=== PATIENT | female | born 1980 | race Caucasian/White ===

== ENCOUNTER 2018-06-11 12:57 | Emergency (ER) | payer MEDICAID ==
[~2018-06-11] VITALS: Ht 160 cm; Wt 60.0 kg
[2018-06-11] MEDS ORDERED: KETOROLAC 30MG/ML VIAL IV STA (13:39)
[2018-06-11] MEDS ORDERED: SODIUM CHLORIDE 0.9% 1,000 ML IV ONE (13:39)
[2018-06-11 14:42] LABS: CLARITY URINE CLEAR (CLEAR); COLOR URINE YELLOW (YELLOW); KETONES URINE NEGATIVE (NEGATIVE); LEUKOCYTE ESTERASE URINE NEGATIVE (NEGATIVE); NITRITE URINE NEGATIVE (NEGATIVE); OCCULT BLOOD URINE NEGATIVE (NEGATIVE); PH URINE 7.5 (4.5-8.0); PROTEIN URINE NEGATIVE (NEGATIVE); SPECIFIC GRAVITY URINE 1.017 (1.005-1.030); UROBILINOGEN URINE 0.2 E.U./dL (0.2-1.0)
[2018-06-11 15:07] LABS: BASOPHILS % 0.5 % (0.0-2.0); EOSINOPHILS % 2.2 % (0.0-5.0); HEMATOCRIT. 40.4 % (36.0-48.0); HEMOGLOBIN. 13.8 g/dL (12.0-16.0); LYMPHOCYTES % 22.7 % (20.0-50.0); MEAN CORPUSCULAR HEMOGLOBIN 31.9 pg (28.0-32.0); MEAN CORPUSCULAR VOLUME 93.1 fL (81.0-99.0); MEAN PLATELET VOLUME 9.5 fl (7.4-10.4); MONOCYTES % 7.3 % (2.0-8.0); NEUTROPHILS % 67.3 % (40.0-76.0); PLATELET 222 x1000/uL (130-400); RED BLOOD CELL COUNT 4.34 mill/uL (4.2-5.4); RED CELL DISTRIBUTION WIDTH 12.3 % (11.6-14.6)
[2018-06-11 15:10] LABS: CHLORIDE 107 mEq/L (98-107)
[2018-06-11 15:13] LABS: HCG SCREEN NEGATIVE; PARTIAL THROMBOPLASTIN TIME 27.7 sec (23.4-31.0); PROTHROMBIN TIME 10.3 sec (9.1-11.1)
[2018-06-11 15:15] VITALS: BP 115/58
== END 2018-06-11 16:59 | disposition home or self-care (01) ==
LOC: ER 12:57
DX: R10.2 Pelvic and perineal pain (principal); Z88.0 Allergy status to penicillin
CPT/HCPCS: 36415; 76830; 76856; 80053; 81003; 81025; 83690; 84703; 85025; 85610; 85730; 99284; J7030

== ENCOUNTER 2018-09-27 03:29 | Emergency (ER) | payer MEDICAID ==
[~2018-09-27] VITALS: Ht 160 cm; Wt 52.0 kg
[2018-09-27 06:15] VITALS: BP 114/59
== END 2018-09-27 06:15 | disposition home or self-care (01) ==
LOC: ER 03:29
DX: R20.2 Paresthesia of skin (principal); H53.8 Other visual disturbances; F41.9 Anxiety disorder, unspecified; R07.9 Chest pain, unspecified; Z88.0 Allergy status to penicillin; Z98.890 Other specified postprocedural states
CPT/HCPCS: 70450; 81025; 93005; 99284; Z7610